=== PATIENT | female | born 1970 | race Caucasian/White ===

== ENCOUNTER 2017-11-10 15:05 | Emergency (ER) | payer BC ==
--- NOTE | 2017-11-10 16:12 | UC ---
Lower Extremity/Ankle HPI - HPI Summary HPI Summary: rolled R ankle on a sidewalk friday(2 days ago). notes pain, swelling and bruising - History of Current Complaint Hx Obtained From: Patient Hx Last Menstrual Period: 04/21/14 Onset/Duration: Sudden Onset Aggravating Factor(s): Ambulation Alleviating Factor(s): Rest Able to Bear Weight: Yes <Leah Logan - Last Filed: 11/10/17 16:04> <Natali Godinez - Last Filed: 11/11/17 21:06> - History of Current Complaint Stated Complaint: RIGHT ANKLE INJURY Time Seen by Provider: 11/10/17 16:01 - Allergies/Home Medications Allergies/Adverse Reactions: Allergies Allergy/AdvReac Type Severity Reaction Status Date / Time No Known Allergies Allergy Verified 11/10/17 16:06 Home Medications: Home Medications Ibuprofen TAB* [Advil TAB*] 600 mg PO Q6H PRN 11/10/17 [History Confirmed ] PMH/Surg Hx/FS Hx/Imm Hx Previously Healthy: Yes - Surgical History Surgical History: Yes Surgery Procedure, Year, and Place: c-sections - Social History Occupation: Employed Full-time Lives: With Family Alcohol Use: Rare Substance Use Type: None Smoking Status (MU): Never Smoked Tobacco <Leah Logan - Last Filed: 11/10/17 16:04> Review of Systems Constitutional: Negative Skin: Negative Eyes: Negative ENT: Negative Respiratory: Negative Cardiovascular: Negative Gastrointestinal: Negative Genitourinary: Negative Motor: Negative Neurovascular: Negative Musculoskeletal: Other: - pain, swelling r ankle Neurological: Negative Psychological: Negative Is Patient Immunocompromised?: No All Other Systems Reviewed And Are Negative: Yes <Leah Logan - Last Filed: 11/10/17 16:04> Physical Exam Triage Information Reviewed: Yes Appearance: Well-Appearing Vital Signs Reviewed: Yes Eyes: Positive: Conjunctiva Clear ENT: Positive: Normal ENT inspection Neck: Positive: Supple, Nontender, No Lymphadenopathy Respiratory: Positive: Lungs clear, Normal breath sounds Cardiovascular: Positive: RRR, No Murmur Abdomen Description: Positive: Nontender, No Organomegaly, Soft Bowel Sounds: Positive: Present Musculoskeletal: Positive: Other: - RLE: hip, knee, achilles atraumatic. lateral ankle with swelling and bruising plus tender. foot non tender with s/v/ m intact. <Leah Logan - Last Filed: 11/10/17 16:04> Vital Signs: Initial Vital Signs Temp 99.5 F 11/10/17 16:08 Pulse 75 11/10/17 16:08 Resp 14 11/10/17 16:08 BP 126/80 11/10/17 16:08 Pulse Ox 100 11/10/17 16:08 <Natali Godinez - Last Filed: 11/11/17 21:06> Diagnostics - Radiology No standard instances Xray Interpretation: Positive (See Comments) - sts, no fx Radiology Interpretation Completed By: Radiologist <Leah Logan - Last Filed: 11/10/17 16:04> Lower Extremity Course/Dx - Course Course Of Treatment: no infection, fx or dislocation - Differential Dx/Diagnosis Provider Diagnoses: Sprain R ankle <Leah Logan - Last Filed: 11/10/17 16:04> Discharge - Sign-Out/Discharge Documenting (check all that apply): Discharge - Billing Disposition and Condition Condition: STABLE Disposition: HOME <Leah Logan - Last Filed: 11/10/17 16:04> - Billing Disposition and Condition Condition: STABLE Disposition: HOME <Natali Godinez - Last Filed: 11/11/17 21:06> - Discharge Plan Condition: Stable Disposition: HOME Patient Education Materials: Ankle Sprain (DC) Forms: *Work Release Referrals: Min Valdez MD [Medical Doctor] - 5 Days Additional Instructions: USE BOOT UNTIL CLEARED Attestation Statement User Type: Provider - I was available for consult. This patient was seen by the [facility]. The patient was not presented to, seen by, or examined by me. Fern <Natali Godinez - Last Filed: 11/11/17 21:06>
[2017-11-10 16:13] VITALS: BP 126/80
--- NOTE | 2017-11-10 16:42 | RAD ---
INDICATION: Lateral ankle pain after rolling injury. COMPARISON: None. TECHNIQUE: 3 views of the right ankle were obtained. FINDINGS: There is asymmetric soft tissue swelling overlying the fibular malleolus. The bones are normal alignment. Joint spaces appear maintained. No fracture is seen. Incidentally noted is an enthesophyte formation at the origin the plantar fascia at the calcaneal tubercle. IMPRESSION: SOFT TISSUE SWELLING OVERLYING THE FIBULAR MALLEOLUS WITHOUT UNDERLYING FRACTURE OR DISLOCATION. If the patient's symptoms persist, follow-up imaging is recommended.
== END 2017-11-10 17:19 | disposition home or self-care (01) ==
LOC: UCCORT 15:05
DX: S93.401A Sprain of unspecified ligament of right ankle, initial encounter (principal); X50.0XXA Overexertion from strenuous movement or load, initial encounter; Y93.9 Activity, unspecified; Y92.480 Sidewalk as the place of occurrence of the external cause
CPT/HCPCS: 99212; G0463